=== PATIENT | female | born 1995 | race African-American/Black ===

== ENCOUNTER 2016-09-28 11:01 | Emergency (ER) | payer MEDICAID, OTHER ==
[~2016-09-28] VITALS: Ht 160 cm; Wt 83.5 kg
[2016-09-28 11:35] VITALS: BP 110/70
[2016-09-28] MEDS ORDERED: ERYTHROMYCIN3.5 GM LEFT EYE (11:41)
[2016-09-28 11:45] VITALS: BP 110/70
--- NOTE | 2016-09-29 14:16 | Emergency Room Report ---
History of Present Illness General Chief Complaint: Eye Problems Source: Patient Present Illness HPI 21 YOF with 1 day left eye yellow discharge, redness, swelling of eyelid. Denies fever/chills, headache, neck pain/stiffness. Doesnt wear contacts. Allergies: Coded Allergies: No Known Allergies (Unverified , 06/12/12) Patient History Past Medical History: none Past Surgical History: none Pertinent Family History: none Social History: Denies: alcohol use, drug use, smoking Last Menstrual Period: 09/19/16 Now: No Immunizations: UTD Reviewed Nursing Documentation: PMH: Agreed, PSxH: Agreed Nursing Documentation-PMH Past Medical History: No Stated History Review of Systems All Other Systems: negative except mentioned in HPI Physical Exam Vital Signs Date Time Temp Pulse Resp B/P Pulse Ox O2 Delivery O2 Flow Rate FiO2 09/28/16 11:22 98.4 102 14 110/70 100 Room Air Sp02 EP Interpretation: reviewed, normal General Appearance: normal inspection, well appearing, no apparent distress, alert, GCS 15, non-toxic Head: normocephalic, atraumatic Eyes: bilateral eye EOMI, bilateral eye PERRL, bilateral eye other - Left eye: injected conjunctiva. Yellow discharge. Eyelid swelling. No pain with EOMI ENT: normal ENT inspection, hearing grossly normal, normal voice Neck: normal inspection, full range of motion, supple, no bony tend Respiratory: normal inspection, lungs clear, normal breath sounds, no respiratory distress, no retraction, no wheezing Cardiovascular #1: regular rate, rhythm, no edema Gastrointestinal: normal inspection, normal bowel sounds, non tender, soft, no guarding, no hernia Genitourinary: no CVA tenderness Musculoskeletal: normal inspection, back normal, normal range of motion, Nain' s Sign negative Neurologic: normal inspection, alert, oriented x3, responsive, environmental systems coordinator III-XII nml as tested, motor strength/tone normal, speech normal Psychiatric: normal inspection, judgement/insight normal, mood/affect normal Skin: normal inspection Lymphatic: normal inspection Medical Decision Making Diagnostic Impression: Primary Impression: Bacterial conjunctivitis of left eye ER Course Rx Topical Abx Follow up with PMD as needed Optham as needed if no improvement Last Vital Signs Date Time Temp Pulse Resp B/P Pulse Ox O2 Delivery O2 Flow Rate FiO2 09/28/16 11:45 98.4 14 110/70 100 Room Air 3/22/17 11:35 102 Status: improved Disposition: HOME, SELF-CARE Condition: Improved Scripts Erythromycin Base (ERYTHROMYCIN*) 3.5 Gm Oint...g. 1 APPLIC LEFT EYE 4x a day for 7 Days, #3.5 GM 0 Refills Prov: COLIN HOUSE M.D. 09/28/16 Patient Instructions: Bacterial Conjunctivitis Additional Instructions: - Take your Zyrtec as needed for itch, eye swelling - Apply cold compress to eye to reduce swelling - Apply antibiotic cream as prescribed to treat infection COLIN HOUSE M.D. Sep 29, 2016 14:16
== END 2016-09-28 11:45 | disposition home or self-care (01) ==
LOC: EMR 11:31
DX: H11.89 Other specified disorders of conjunctiva (principal); B96.89 Other specified bacterial agents as the cause of diseases classified elsewhere
CPT/HCPCS: 99283